=== PATIENT | female | born 1995 | race Hispanic/Latino ===

== ENCOUNTER 2020-08-04 13:42 | Emergency (ER) | payer SELFPAY ==
[2020-08-04] MEDS ORDERED: Ketorolac Tromethamine 30 MG/ML VIAL ONE (14:29)
[2020-08-04 14:39] LABS: Bilirubin Neg (Negative); Blood, Urine 25 (Negative); Clarity Slightly Cloudy (Clear); Glucose, Urine (Dipstick) Normal (Negative); Ketone, Urine 50 mg/dL (Negative); Leukocyte 25 (Negative); Nitrite Negative (Negative); Protein, Urine (Dipstick) 15 mg/dl (Neg-Trace); Specific Gravity, Urine 1.025 (1.002-1.036)
[2020-08-04 14:51] LABS: #Basophils 0.1 10x3/uL (0.0-0.2); #Eosinphils 0.1 10x3/uL (0.0-0.5); #Monocytes 0.7 10x3/uL (0.0-1.1); #Neutrophils 5.4 10x3/uL (1.5-8.4); %Basophils 0.5 % (0.0-2.0); %Eosinophils 0.6 % (0.0-6.0); %Lymphocytes 33.8 % (18.0-47.0); %Monocytes 7.4 % (0.0-10.0); %Neutrophils 57.4 % (40.0-75.0); Hemoglobin 13.7 g/dL (12.0-15.5); Mean Corpuscular HGB CONC 33.4 g/dL (32.0-36.0); Mean Corpuscular Volume 92.8 fl (81.6-98.3); Mean Platelet Volume 10.4 fl (7.4-10.4); Platelet Count 394 10x3/uL (150-450); RBC Distribution Width 12.6 % (11.5-14.5); Red Blood Cell (RBC) Count 4.42 10x6/uL (3.90-5.03); White Blood Cell (WBC) Count 9.4 10x3/uL (3.5-10.5)
[2020-08-04 14:57] LABS: ALT (SGPT) 16 U/L (8-55); AST (SGOT) 14 U/L (5-34); Albumin 4.4 g/dL (3.5-5.0); Alkaline Phosphatase 75 U/L (40-110); Anion Gap 16 mmol/L (10-20); BUN (Urea Nitrogen) 8 mg/dL (7.0-18.7); Bilirubin, Total 0.7 mg/dL (0.2-1.2); Calc. Creatinine Clearance 0 mL/min (70-130); Calcium 9.7 mg/dL (7.8-10.44); Carbon Dioxide 23 mmol/L (22-29); Chloride 104 mmol/L (98-107); Globulin 3.3 g/dL (2.4-3.5); Glucose 77 mg/dL (70-105); Potassium 3.6 mmol/L (3.5-5.1); Protein, Total 7.7 g/dL (6.0-8.3); Sodium 139 mmol/L (136-145)
[2020-08-04 15:04] LABS: BHCG - Serum Negative (NEGATIVE); Pregs Control Background? CLEAR/WHITE (CLR/WHITE); Pregs Control Bar Appear? YES (CONTROL BAR)
[2020-08-04 15:09] LABS: Mucous/LPF 2+ LPF (<2+); RBC/HPF 0-3 HPF (0-3); Transitional Epithelial 0-3 HPF (None Seen)
[2020-08-04 15:10] LABS: Bacteria/HPF 1+ HPF (None Seen)
[2020-08-07 23:03] LABS: Chlamydia by PCR Not Detected (NotDetected); GC by PCR Not Detected (NotDetected)
== END 2020-08-04 16:28 | disposition home or self-care (01) ==
LOC: CSHERS 13:42
DX: N83.201 Unspecified ovarian cyst, right side (principal)
CPT/HCPCS: 74177; 80053; 81003; 81015; 84703; 85025; 87086; 87480; 87491; 87510; 87591; 87660; 94760; 96374; J1885

== ENCOUNTER 2022-10-04 03:04 | Inpatient (IN) | payer OTHER ==
[2022-10-04 03:35] VITALS: BMI 40.6
[2022-10-04] MEDS ORDERED: hydrALAZINE 20 MG/ML VIAL SLOW IVP PRN (04:03)
[2022-10-04 04:34] LABS: Fetal Membranes Rupture No Membranes Rupture (No Rupture)
[2022-10-04 05:27] LABS: #Eosinphils 0.1 10x3/uL (0.0-0.5); #Monocytes 0.9 10x3/uL (0.0-1.1); #Neutrophils 9.3 10x3/uL (1.5-8.4); %Basophils 0.2 % (0.0-2.0); %Eosinophils 0.7 % (0.0-6.0); %Lymphocytes 15.7 % (18.0-47.0); %Monocytes 7.5 % (0.0-10.0); %Neutrophils 75.5 % (40.0-75.0); Hemoglobin 11.5 g/dL (12.0-15.5); Mean Corpuscular HGB CONC 33.4 g/dL (32.0-36.0); Mean Corpuscular Volume 89.8 fl (81.6-98.3); Mean Platelet Volume 11.9 fl (7.4-10.4); Platelet Count 360 10x3/uL (150-450); RBC Distribution Width 13.1 % (11.5-14.5); Red Blood Cell (RBC) Count 3.83 10x6/uL (3.90-5.03); White Blood Cell (WBC) Count 12.3 10x3/uL (3.5-10.5)
[2022-10-04] MEDS ORDERED: fentaNYL 50 mcg/mL 1 mL Vial SLOW IVP SCH (05:45)
[2022-10-04 06:13] LABS: HIV (1/2) Antibody/Antigen Non-Reactive (NonReactive)
[2022-10-04] MEDS ORDERED: Bupivacaine 0.25% HCL 30 ML VIAL ONE (08:00)
[2022-10-04] MEDS ORDERED: Methylergonovine 0.2 MG/ML VIAL IM PRN (08:43)
[2022-10-04] MEDS ORDERED: Promethazine HCl 25 MG/ML VIAL IM PRN ×2 (08:43→13:38)
[2022-10-04] MEDS ORDERED: Ondansetron PF 4 MG/2 ML Vial IVP PRN ×2 (08:43→13:38)
[2022-10-04] MEDS ORDERED: Misoprostol 200 MCG TAB PR PRN (08:43)
[2022-10-04] MEDS ORDERED: Acetaminophen 500 MG TAB PO PRN (08:43)
[2022-10-04] MEDS ORDERED: Tranexamic Acid 1,000 MG/10 ML VIAL IVP PRN (08:43)
[2022-10-04] MEDS ORDERED: Carboprost 250 MCG/ML AMP IM PRN (08:43)
[2022-10-04] MEDS ORDERED: NS w/ Oxytocin 30 units 500 ML IV SCH (08:45)
[2022-10-04] MEDS ORDERED: Lidocaine 1% (PF) 30 ML VIAL SC PRN (09:40)
[2022-10-04] MEDS ORDERED: Ibuprofen 800 MG TAB PO PRN (09:40)
[2022-10-04 10:50] LABS: HBSAg Index 0.14 S/CO (0-0.99); Hep B Surf Ag - L&D Non-Reactive S/CO (NonReactive)
[2022-10-04] MEDS ORDERED: fentaNYL/Ropivacaine Epidural 100 ML ONE (13:06)
[2022-10-04] MEDS ORDERED: Naloxone HCl 0.4 mg/ml Vial IVP PRN ×2 (13:38)
[2022-10-04] MEDS ORDERED: Moisturizing Cream (Eucerin) 113 GM JAR TOP PRN (13:38)
[2022-10-04] MEDS ORDERED: ePHEDrine Sulfate 50 MG/10 ML VIAL SLOW IVP PRN (13:38)
[2022-10-04] MEDS ORDERED: Acetaminophen 325 MG TAB PO PRN (13:38)
[2022-10-04] MEDS ORDERED: Lactated Ringer's 500 ML IV PRN (13:38)
[2022-10-04] MEDS ORDERED: diphenhydrAMINE 50 MG/ML VIAL IVP PRN (13:38)
[2022-10-04] MEDS ORDERED: fentaNYL 2 mcg/Ropivacaine 0.2% Epidural 100 ML CADD EPIDURAL SCH (13:45)
[2022-10-04] MEDS ORDERED: Communication Order-Pharmacy FS SCH (13:45)
[2022-10-04 14:20] LABS: Amphetamine Not Detected (NotDetected); Barbiturates Screen Not Detected (NotDetected); Benzodiazepine Screen Not Detected (NotDetected); Cocaine Metabolite Screen Not Detected (NotDetected); Methadone Not Detected (NotDetected); Methamphetamine Not Detected (NotDetected); Opiate Screen Not Detected (NotDetected); Oxycodone Screen Not Detected (NotDetected); Phencyclidine (PCP) Not Detected (NotDetected); THC/Cannabinoid Screen Not Detected (NotDetected); Tricyclic Screen Not Detected (NotDetected)
[2022-10-04 14:39] LABS: Syphilis Antibody Nonreactive (Nonreactive); Syphilis Antibody Index 0.06 S/CO (<1.00 Non-Reactive)
[2022-10-04] MEDS ORDERED: Docusate 100 MG CAP PO PRN (20:20)
[2022-10-04] MEDS ORDERED: Milk Of Magnesia 30 ML UDCUP PO PRN (20:20)
[2022-10-04] MEDS ORDERED: Boostrix 0.5 ML (Tdap) VIAL (>/=7 yrs of age) IM ONE (20:20)
[2022-10-04] MEDS ORDERED: Bisacodyl 10 MG SUPP PR PRN (20:20)
[2022-10-04] MEDS: Lactated Ringer's 1,000 ML IV SCH (21:40)
[2022-10-04] MEDS: metroNIDAZOLE 500 MG TAB PO SCH ×2 (21:40→21:49)
[2022-10-05] MEDS: Ibuprofen 800 MG TAB PO PRN ×2 (06:43→13:55)
[2022-10-05] MEDS: metroNIDAZOLE 500 MG TAB PO SCH ×2 (09:22→21:06)
[2022-10-05 11:40] LABS: Group B Streptococcus by PCR Not Detected (NotDetected)
[2022-10-06 07:30] VITALS: BP 135/78; TEMP 98.2
[2022-10-06] MEDS: metroNIDAZOLE 500 MG TAB PO SCH (08:22)
== END 2022-10-06 12:50 | disposition home or self-care (01) | DRG 807 ==
LOC: CSHERS 03:04 → CSHLD 09:32 → CSHPED 22:35
PROVIDERS: ADMIT Emergency Medicine; ATTEND Emergency Medicine
PROC: 10H07YZ Insertion of Other Device into Products of Conception, Via Natural or Artificial Opening (ICD-10-PCS; principal; 2022-10-04)
PROC: 10E0XZZ Delivery of Products of Conception, External Approach (ICD-10-PCS; 2022-10-04)
PROC: 10907ZC Drainage of Amniotic Fluid, Therapeutic from Products of Conception, Via Natural or Artificial Opening (ICD-10-PCS; 2022-10-04)
DX: O99.214 Obesity complicating childbirth (principal); Z37.0 Single live birth; E66.9 Obesity, unspecified; O69.81X0 Labor and delivery complicated by cord around neck, without compression, not applicable or unspecified; O23.593 Infection of other part of genital tract in pregnancy, third trimester; Z3A.38 38 weeks gestation of pregnancy; O71.89 Other specified obstetric trauma; B96.89 Other specified bacterial agents as the cause of diseases classified elsewhere; A59.8 Trichomoniasis of other sites; Z87.891 Personal history of nicotine dependence; Z83.3 Family history of diabetes mellitus
CPT/HCPCS: 36415; 80306; 84112; 85025; 86780; 86850; 86900; 86901; 87340; 87389; 87480; 87510; 87653; 87660; J3010; S0020